=== PATIENT | male | born 2000 | race Hispanic/Latino ===

== ENCOUNTER 2024-10-16 07:33 | Emergency (ER) | payer BC, SELFPAY ==
[2024-10-16 07:38] VITALS: BP 144/103
--- NOTE | 2024-10-16 10:37 | ED.GENMED ---
History of Present Illness
General
Chief Complaint: Crisis Evaluation
Source: patient
Time Seen by Provider: 10/16/24 07:39
History of Present Illness
History of Present Illness:
24-year-old male brought to the emergency room by police. Patient was detained and brought to the emergency room for psychiatric evaluation after discharging a firearm outside. Patient states he did this because he was frustrated about recent
events in his life. Patient denies any intent to harm himself or harm anyone else. Patient's mother called 911. Patient does confirm that he is aware of discharging a firearm in public like this is illegal. He denies point the gun at himself or
anyone else at any point.
Past History
Past History
ED Past Medical History: Other (ADHD)
ED Past Surgical History: None
Social History
Living: with family
Phy Exam
Physical Exam
Physical Exam:
General: Awake, Alert, Oriented X3. No acute distress.
Vitals: unremarkable
Head: Atraumatic
Eyes: Pupils equal, EOMI
Throat: Airway intact, no exudates
Neck: Trachea midline
Lungs: Clear and equal b/l
Heart: Regular rate, no murmurs
Abd: Soft, Nontender, No pulsatile mass
Neuro: Nonfocal
Skin: Warm, dry, no rash
Extremities: pulses equal b/l, no edema
Course
Orders/Labs/Results
Orders:
Orders
10/16/24 09:59
Crisis Consult Urgent
Reason for Consult: pt 302 by police
10/16/24 10:06
Lorazepam [Ativan] 1 mg PO NOW STA
10/16/24 11:11
Lorazepam [Ativan] 1 mg PO Q4HPRN PRN
10/16/24 11:21
Acetaminophen Urgent
Alcohol Urgent
Complete Blood Count/With Diff Urgent
Comprehensive Metabolic Panel Urgent
Salicylate Urgent
Urine Drug Abuse Screen Urgent
Date Specimen was Collected: 10/16/24
Time Specimen was Collected: 11:22
10/16/24 12:00
Nicotine [Nicoderm Transdermal] 21 mg TRANSDERM DAILY
Vital Signs
Initial and Last Documented VS:
Initial Vital Signs
Temp Pulse Resp BP Pulse Ox
97.9 F 112 20 144/103 95
10/16/24 07:38 10/16/24 07:38 10/16/24 07:38 10/16/24 07:38 10/16/24 07:38
Last Documented Vital Signs
Temp Pulse Resp BP Pulse Ox
97.9 F 112 20 144/103 95
10/16/24 07:38 10/16/24 07:38 10/16/24 07:38 10/16/24 07:38 10/16/24 07:38
MDM/Problems Addressed
Differential Diagnosis Includes:
Depression, anxiety, psychosis
MDM/Problems Addressed:
Patient arrives after firing a weapon. He denies suicidal or homicidal ideation. Obviously it is very bizarre and dangerous behavior. Will defer to psychiatry evaluation on whether to uphold the 302.
302 was upheld. Pending placement.
*Pulse Oximetry
Patient hypoxic: no
*Critical Care Note
Total Time (30-74mins, 75-104mins- exclusive of procedures): Not Applicable
ED Attending Note
-
Portions of this chart may have been created with voice recognition software.� Occasional wrong word or��sound alike� substitutions may have occurred due to the inherent limitations of voice recognition software.
Discharge Plan
Departure
Patient Disposition: Other
Date of Disposition: 10/16/24
Time of Disposition: 10:38
Patient Status:: 302
Condition: Fair
Discharge Problem:
Depression, Anxiety
Referrals:
UNKNOWN - PT DOES,NOT KNOW [Family Provider] -
Interventions
Interventions:
*Risk Screen - Suicide Last Done: 10/16/24 07:38
*General Assessment Last Done: 10/16/24 07:40
*Neglect/Abuse Screening Last Done: 10/16/24 07:40
*ED- Fall Risk Assessment Last Done: 10/16/24 07:44
*ED COVID-19 Vaccine History Last Done: 10/16/24 07:44
ED-Psychological Assessment Last Done: 10/16/24 07:42
Discharge Date and Time
Print Language: LIBERIAN
--- NOTE | 2024-10-16 10:39 | CON.MD ---
Consultation - Medical
-
patient seen chart reviewed. spoke with dr perdomo. the patient is a 24 year old male who has been seen in this er in the past for 302 petition which was denied. there is not documentation of that visit in the chart. he was seen by telepsych.
this 302 was filed by police. i called the officer's number which was the [facility] police dept and asked the officer jennifer to please call my cell to discuss this petition. the patient denies that he is a risk to self or others. he does NOT
deny that he was brandishing a weapon and that he fired into the ground. he says he came home drunk after about seven drinks the amount which he imbibes usually on two weekend nights. he and mother got into an argument. he says his mother was
taunting him. he went outside with his gun and 'i had no intention of hurting my mother or anyone esle....just a show of force to myself...a sense of competence...' he adds 'a bunch of other stuff lead up to that...' and 'i can shoot a gun and
'look at me i'm a badass' ' he has three firearms that are in a safe and 'locked up'. he denies that he is depressed. says he eats well and sleeps seven hours a night. he is not psychotic. he says he does have hx of depression and anxiety when he
was younger. one recent stress is loss of his job. 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 he admits he uses marijuana for 'depression and anxiety' which he denied suffering and that he has a medical mj card.
spoke to the officer who filed the petition. he reports he was called to the scene. mom was very frightened she would be hurt and alleged her son fired off two rounds in the yard. mom alleges patient said he wanted to hurt people. the officer said
they could not make contact with the patient initially. he was in his br refusing to come out. he was very argumentative. officer turned to less charged topics and the patient came down. he admitted to firing the rounds and to having had a gun. he
told the officer he had ' a lot of stuff going on in his life and hence shooting off the guns. he seemed anxious about all the things going on in his life.' the policemen took four guns from the house today. the police had considered charging him
but they had only mom's word no proof . since that time they have gone back to the house and found casings and are assessing the case.
called mom at the cell in the chart left message for her. she did return the call. she states son out all night and came home very angry. this is she says 'almost a normal occurrence with him'. he threatens to hurt people and himself. this am he
was 'insistent on having the gun to hurt someone i don't know whom.' there were other incidents where he would be texting her into the wee hours of the day or night that he would kill himself but he did not have the gun' she said this occurred about
a month ago. she said these episodes are occurring with increasing frequency . she said he has struggled with feelings . his father two years ago of complications from etoh and roger was hit hard by that. mother feels he struggles with
complicated grief. mom has a great deal of concern for him. he was dx with severe anxiety as a teenager and with adhd. he never participated well in programs but mom says she never stopped trying. mom says he was in php at [facility] not
[facility]. he was never hospitalized overnight at any psych facility. he also had some involvement [facility] juvenile probation . he was in [facility] months which is [facility]. he was on probation until he was 18 . he was home schooled for part
of high school.
past psych hx the patient denies that he was ever hospitalized for psych. he was 302 committed twice in the past but it was not upheld either time. he also was reportedly in out [facility] php but i cannot find a record of it and this may be contained in
the old [facility] ehr dx at some point in the past with adhd not currently on psych meds. denied any attempts to harm self or others.
medical gerd overweight otherwise healthy hx severe concussion in late teens from soccer and karate
fh dad ' of alcoholism.' patient originally denied any hx of psych or d and a
substance abuse see above re etoh and mj
social resides w mom has a sister who lives on her own in [place] and works in IT had a job but lost it recently states he has + friendships would like to work in [employer] and is looking for employ denies being abused dad from etoh
patient is attending [employer] school and trying to get his certification mom says only going three times weekly bc can't handle more
mse alert ox3 speech and thought process nl no psychosis mood is anxious affect labile denies suicidal thoughts denies that he wanted to hurt others but admits to the 302 allegations aver intelligence insight judgment poor
dx r/o bipolar disorder r/o PTSD (father's ) intermittent explosive disorder etoh use disorder unspecified adhd by history r.o personality disorder
plan uphold 302 at this point. crisis will seek a psych bed. need tox screen and bloodwork. he denies wd sx but we will watch for etoh wd signs if he remains ativan prn agitation.
[2024-10-16 11:21] VITALS: BMI 29.4
[2024-10-16] MEDS: NICODERM TRANSDERMAL 21 MG TRANSDERM (14:53)
[2024-10-16 15:13] LABS: % Basophils 0.8 % (0-2); % Eosinophils 0.7 % (0-6); % Immature Granulocytes 0.5 % (0-0.5); % Lymphocytes 27.8 % (20.5-51.1); % Monocytes 7.8 % (1.7-9.3); % Neutrophils 62.4 % (42.2-75.2); Absolute Basophils 0.1 10^3/uL (0-0.2); Absolute Eosinophils 0.1 10^3/uL (0-0.7); Absolute Immature Granulocytes 0.1 10^3/uL (0-0.05); Absolute Lymphocytes 2.8 10^3/uL (1.2-3.4); Absolute Monocytes 0.8 10^3/uL (0.1-0.6); Absolute Neutrophils 6.3 10^3/uL (1.4-6.5); Hematocrit 49.7 % (39.0-52.0); Hemoglobin 17.4 g/dL (13.0-18.0); Mean Corpuscular Hgb 30.7 pg (27.0-31.0); Mean Corpuscular Volume 87.7 fL (80.0-94.0); Nucleated Red Blood Cells % 0 % (-); Platelet Count 211 10^3/uL (130-400); Red Blood Cell Count 5.67 10^6/uL (4.70-6.10); Red Cell Dist. Width 12.8 % (11.5-14.5); White Blood Cell Count 10.1 10^3/uL (4.8-10.8)
[2024-10-16 15:25] LABS: ALT (SGPT) 31 U/L (0-50); AST (SGOT) 34 U/L (17-59); Acetaminophen < 10 ug/ml (10-30); Albumin 5.3 g/dl (3.5-5.0); Alcohol 76 mg/dl; Alkaline Phosphatase 91 U/L (38-126); Blood Urea Nitrogen 13 mg/dl (9-20); Carbon Dioxide 28 mmol/L (22-30); Chloride 108 mmol/L (98-107); Estimated Creatinine Clearance > 125 ml/min; Glucose 101 mg/dl (70-99); Potassium 4.5 mmol/L (3.5-5.1); Salicylate < 1.0 mg/dl (2.0-20.0); Sodium 146 mmol/L (135-145); Total Bilirubin 0.5 mg/dl (0.2-1.3); Total Protein 8.5 g/dl (6.3-8.2); eGFR > 60.00
[2024-10-16] MEDS: REFRESH EYE DROPS (PF) 1 DROPS OPHTH (15:32)
[2024-10-16 15:45] VITALS: BP 139/93
[2024-10-16 16:21] LABS: Amphetamines Negative (Negative); Barbiturates Negative (Negative); Benzodiazepines Negative (Negative); Buprenorphine Negative (Negative); Cocaine Positive (Negative); Marijuana Positive (Negative); Methadone Negative (Negative); Methamphetamines Negative (Negative); Opiates Negative (Negative); Phencyclidine Negative (Negative); Tricyclic Antidepressants Negative (Negative)
[2024-10-16 16:36] LABS: Fentanyl, Urine Negative (Negative)
== END 2024-10-16 17:08 | disposition other institution (70) ==
LOC: EMR 07:33
PROVIDERS: EMERGENCY PHYSICIAN Emergency Medicine
DX: F32.A Depression, unspecified (principal); F41.9 Anxiety disorder, unspecified; F90.9 Attention-deficit hyperactivity disorder, unspecified type
CPT/HCPCS: 99283; 80053; 80143; 80179; 80306; 80307; 82077; 85025